=== PATIENT | female | born 1950 | race Caucasian/White ===

== ENCOUNTER → 2024-06-21 | Outpatient (CLI) | payer MEDICARE, OTHER ==
[~2024-06-21] MED LIST: ASPI81CH PO; ATEN25 PO; B-COMPLEX PLUS1 EACH PO; CALCAVITDA PO; CALCIT950 PO; CALCIUM CITRATE PO; Fish Oil PO; HYDCHL25 PO; MULVITB&C PO; MULVITMIND PO; OMEG1CAP30 PO; OSTERA TABLET1 EACH PO; POTA10T PO; RAMI5 PO; SIMV10 PO; SUPER B COMPLEX PO; VIT D DAILY; VITAMIN D PO
== END | disposition home or self-care (01) ==
LOC: LAB SHORT 14:15 → LAB 14:15
DX: N39.0 Urinary tract infection, site not specified (principal)
CPT/HCPCS: 87077; 87086; 87186